=== PATIENT | male | born 1985 | race African-American/Black ===

== ENCOUNTER 2020-10-31 02:35 | Emergency (ER) | payer SELFPAY ==
[~2020-10-31] VITALS: Ht 167.6 cm; Wt 69.0 kg
[2020-10-31] MEDS ORDERED: ASPIRIN 81MG TABLET PO ONE (03:45)
[2020-10-31 05:23] LABS: BASOPHILS % 0.7 % (0.0-2.0); EOSINOPHILS % 0.9 % (0.0-5.0); HEMATOCRIT. 47.8 % (42.0-52.0); LYMPHOCYTES % 17.3 % (20.0-50.0); MEAN CORPUSCULAR HEMOGLOBIN 26.6 pg (28.0-32.0); MEAN CORPUSCULAR VOLUME 79.5 fL (80.0-94.0); MEAN PLATELET VOLUME 8.7 fl (7.4-10.4); NEUTROPHILS % 74.1 % (40.0-76.0); PLATELET 190 x1000/uL (130-400); RED BLOOD CELL COUNT 6.02 mill/uL (4.7-6.1); RED CELL DISTRIBUTION WIDTH 14.2 % (11.6-14.6)
[2020-10-31 05:31] LABS: CHLORIDE 101 mEq/L (98-107)
[2020-10-31 05:34] LABS: ETHANOL BLOOD < 10 mg/dL
[2020-10-31 05:57] LABS: *AMPHETAMINES SCREEN URINE NEGATIVE (NEGATIVE)
[2020-10-31 05:58] LABS: *BARBITURATES SCREEN URINE NEGATIVE (NEGATIVE); *COCAINE SCREEN URINE NEGATIVE (NEGATIVE); METHADONE URINE SCREEN NEGATIVE (NEGATIVE); OPIATES URINE SCREEN NEGATIVE (NEGATIVE); PHENCYCLIDINE URINE SCREEN NEGATIVE (NEGATIVE)
[2020-10-31 05:59] LABS: *BENZODIAZEPINES SCREEN URINE NEGATIVE (NEGATIVE); CANNABINOID URINE SCREEN NEGATIVE (NEGATIVE)
[2020-10-31] MEDS ORDERED: CLONIDINE 0.2MG TABLET PO NR (08:15)
[2020-10-31] MEDS ORDERED: ENOXAPARIN 80MG/0.8ML SYR SUBCUT SCH (09:00)
[2020-10-31] MEDS: HYDRALAZINE 20MG/ML VIAL IV SCH ×2 (09:04→12:00)
[2020-10-31] MEDS ORDERED: LABETALOL 5MG/ML SYR 20 MG/4 ML SYRINGE IV NR (09:30)
[2020-10-31] MEDS ORDERED: ALPRAZOLAM 0.25 MG TABLET PO NR (09:30)
[2020-10-31] MEDS ORDERED: ACETAMINOPHEN 325MG TABLET PO PRN (09:30)
[2020-10-31] MEDS ORDERED: FUROSEMIDE 40MG/4ML VIAL IVP NR (09:30)
[2020-10-31] MEDS ORDERED: ONDANSETRON HCL 4MG/2ML INJ IV PRN (09:30)
[2020-10-31] MEDS ORDERED: CLONIDINE 0.2MG TABLET PO SCH (12:00)
[2020-10-31 13:55] LABS: INR 1.1; PROTHROMBIN TIME 11.1 sec (9.6-11.0)
[2020-10-31 14:38] VITALS: BP 151/91
[2020-10-31] MEDS ORDERED: LEVOFLOXACIN 500MG TABLET PO NR (15:11)
[2020-10-31] MEDS ORDERED: FURO-152 MT ×2 (16:29→16:32)
[2020-10-31] MEDS ORDERED: AMLO10TA80 MT ×2 (16:29→16:32)
[2020-10-31] MEDS ORDERED: CLON0.1T MT ×2 (16:29→16:32)
[2020-10-31] MEDS ORDERED: LEVO750T21 MT ×2 (16:29→16:32)
[2020-10-31] MEDS ORDERED: HYDR100T26 MT ×2 (16:29→16:32)
== END 2020-10-31 15:45 | disposition home or self-care (01) ==
LOC: ER 02:35 → EDBD 02:35 → ER 15:45 → CANBEDREQ 11-01 09:20
DX: R06.02 Shortness of breath (principal); I10 Essential (primary) hypertension; Z20.828 Contact with and (suspected) exposure to other viral communicable diseases; Z79.899 Other long term (current) drug therapy
CPT/HCPCS: 36415; 71045; 80053; 80061; 80305; 80320; 83690; 83880; 84443; 84484; 85025; 85610; 96374; 99291; C9803; J0360; J1940; J2405; U0003; Z7610; G0480